=== PATIENT | male | born 1960 | race Asian ===

== ENCOUNTER → 2018-01-05 | Outpatient (CLI) | payer OTHER | END | disposition home or self-care (01) | LOC: CFH 09:42 | PROVIDERS: ATTEND Internal Medicine Cardiovascular Disease | DX: R07.9 Chest pain, unspecified (principal); E78.5 Hyperlipidemia, unspecified; G45.9 Transient cerebral ischemic attack, unspecified | CPT/HCPCS: 93306 ==

== ENCOUNTER 2018-03-02 06:58 | Day surgery (SDC) | payer OTHER ==
[~2018-03-02] VITALS: Ht 170.2 cm; Wt 86.4 kg
[2018-03-02] MEDS ORDERED: SODIUM CHLORIDE 0.9% 1,000 ML IV ONE (07:50)
[2018-03-02] MEDS ORDERED: ASPIRIN 325 MG TABLET EC PO ONE (08:00)
[2018-03-02] MEDS ORDERED: PLEASE ENTER ALLERGIES MC SCH (08:00)
[2018-03-02] MEDS ORDERED: OMEP20TA62 PO (08:03)
[2018-03-02] MEDS ORDERED: ATOR20TA9 PO (08:03)
[2018-03-02 08:32] LABS: BASOPHILS # (AUTO) 0.03 x10^3/uL (0-0.1); BASOPHILS % (AUTO) 0 % (0-1); EOSINOPHILS # (AUTO) 0.22 x10^3/uL (0-0.4); EOSINOPHILS % (AUTO) 3 % (1-7); LYMPHOCYTES # (AUTO) 2.29 x10^3/uL (1-3.4); LYMPHOCYTES % (AUTO) 26 % (22-44); MD NO; MEAN CORPUSCULAR HEMOGLOBIN 26.5 pg (27.5-34.5); MEAN CORPUSCULAR HGB CONC 32.9 g/dL (33.2-36.2); MEAN CORPUSCULAR VOLUME 80.5 fL (81-97); MEAN PLATELET VOLUME 9.3 fL (7.4-10.4); MONOCYTES # (AUTO) 0.54 x10^3/uL (0.2-0.8); MONOCYTES % (AUTO) 6 % (2-9); NEUTROPHILS # (AUTO) 5.67 x10^3/uL (1.8-6.8); NEUTROPHILS % (AUTO) 65 % (42-75); PLATELET COUNT 266 x10^3/uL (130-400); RED BLOOD COUNT 5.88 x10^6/uL (4.38-5.82); RED CELL DISTRIBUTION WIDTH 13.8 % (9.4-14.8)
[2018-03-02 08:37] LABS: ANION GAP 6 mmol/L (5-15); CALCIUM 8.5 mg/dL (8.5-10.1); CHLORIDE 108 mmol/L (98-107); CREATININE 1.04 mg/dL (0.7-1.3)
[2018-03-02] MEDS ORDERED: ASPIRIN 325 MG TABLET EC ONE (09:01)
[2018-03-02] MEDS ORDERED: MIDAZOLAM 1 MG/ML, 5ML ONE (09:44)
[2018-03-02] MEDS ORDERED: BIVALIRUDIN 250 MG ONE (09:45)
[2018-03-02] MEDS ORDERED: TICAGRELOR 90 MG TABLET ONE (09:45)
[2018-03-02] MEDS ORDERED: FENTANYL PF 100 MCG/2ML ONE (09:45)
[2018-03-02] MEDS ORDERED: VERAPAMIL 2.5 MG/ML, 2ML ONE (09:45)
[2018-03-02] MEDS ORDERED: LIDOCAINE-MPF 1%, 5ML ONE (09:45)
[2018-03-02] MEDS ORDERED: HEPARIN 1,000 UNITS/ML, 10ML ONE (09:45)
[2018-03-02] MEDS ORDERED: SODIUM CHLORIDE 0.9% 1,000 ML IV SCH (10:28)
[2018-03-02] MEDS ORDERED: ACETAMINOPHEN 325 MG TABLET PO PRN (10:30)
== END 2018-03-02 13:00 | disposition home or self-care (01) ==
LOC: CACL 06:58
PROVIDERS: ATTEND Internal Medicine Cardiovascular Disease
DX: I25.110 Atherosclerotic heart disease of native coronary artery with unstable angina pectoris (principal); K21.9 Gastro-esophageal reflux disease without esophagitis; E78.00 Pure hypercholesterolemia, unspecified; I10 Essential (primary) hypertension; E78.5 Hyperlipidemia, unspecified; Z79.82 Long term (current) use of aspirin; Z98.890 Other specified postprocedural states; Z79.899 Other long term (current) drug therapy
CPT/HCPCS: 36415; 80048; 85025; 93458; 99156; C1769; C1894; J1644; J2250; J3010; Q9967; J0583